=== PATIENT | male | born 1980 | race Caucasian/White ===

== ENCOUNTER → 2023-07-29 | Emergency (ER) | payer OTHER ==
[~2023-07-29] MED LIST: HYDROCODONE/APAP 7.5/325 MG TAB ONE; IBUPROFEN 400 MG TAB ONE
--- NOTE | 2023-07-29 03:16 | ER ---
Nurse's Notes [facility] Name: Toni Castro Age: 42 yrs Sex: Male : 1980 Arrival Date: 07/29/2023 Time: 01:20 Bed 18 Private MD: Diagnosis: Contusion of hand-right;Contusion of right wrist Presentation: 07/29 01:21 Chief complaint: Patient states: "it was loud in the yard and i didn't hear them say ap3 that the door was closing and it closed on my hand. It was in there for a good minute and a half before they opened it back up". patient complains of pain to his right and that he states is currently a 10/10 on the pain scale. Coronavirus screen: At this time, the client does not indicate any symptoms associated with coronavirus-19. Ebola Screen: No symptoms or risks identified at this time. Initial Sepsis Screen: Does the patient meet any 2 criteria? No. Patient's initial sepsis screen is negative. Does the patient have a suspected source of infection? No. Patient's initial sepsis screen is negative. Risk Assessment: Do you want to hurt yourself or someone else? Patient reports no desire to harm self or others. Onset of symptoms was July 28, 2023 at 20:00. 01:21 Method Of Arrival: Law Enforcement: [place] [employer] ap3 01:21 Acuity: RONALD 4 ap3 Triage Assessment: 01:25 General: Appears in no apparent distress. Behavior is calm, cooperative, appropriate ap3 for age. Pain: Complains of pain in right hand Pain currently is 10 out of 10 on a pain scale. Pain began suddenly. Neuro: Level of Consciousness is awake, alert, obeys commands, Oriented to person, place, time, situation, Appropriate for age. Cardiovascular: Patient's skin is warm and dry. Respiratory: Airway is patent Respiratory effort is even, unlabored, Respiratory pattern is regular, symmetrical. Derm: Wound noted right hand. Musculoskeletal: Swelling present in right hand. Historical: - Allergies: 01:24 No Known Allergies; ap3 - Home Meds: 01:24 None [Active]; ap3 - PMHx: 01:24 Hypertensive disorder; ap3 - Immunization history:: Client reports receiving the 2nd dose of the Covid vaccine, Flu vaccine is up to date. - Social history:: Smoking status: Patient denies any tobacco usage or history of. Screenin:26 [facility] ED Fall Risk Assessment (Adult) History of falling in the last 3 months, ap3 including since admission No falls in past 3 months (0 pts). Abuse screen: Denies threats or abuse. Nutritional screening: No deficits noted. Tuberculosis screening: No symptoms or risk factors identified. Assessment: 01:21 General: Appears comfortable, Behavior is calm, cooperative. Pain: Complains of pain in ha1 dorsal aspect of proximal phalanx of right thumb and dorsal aspect of right wrist Pain currently is 10 out of 10 on a pain scale. Quality of pain is described as throbbing. Neuro: Level of Consciousness is awake, alert, obeys commands, Oriented to person, place, time, situation. Cardiovascular: Capillary refill < 3 seconds Patient's skin is warm and dry. Respiratory: Airway is patent Respiratory effort is even, unlabored, Respiratory pattern is regular, symmetrical. Derm: Skin is pink, warm \\T\\ dry. Musculoskeletal: Circulation, motion, and sensation intact. Range of motion: intact in all extremities, Swelling present in palmar aspect of right wrist Reports pain in palmar aspect of right wrist. 02:22 Reassessment: Patient and/or family updated on plan of care and expected duration. Pain ha1 level reassessed. Patient is alert, oriented x 3, equal unlabored respirations, skin warm/dry/pink. Vital Signs: 01:21 BP 159 / 107; Pulse 80; Resp 17; Temp 97.8; Pulse Ox 100% ; Weight 107.95 kg; Height 5 ap3 ft. 11 in. ; Pain 10/10; 01:58 BP 130 / 81; Pulse 78; Resp 17 S; Pulse Ox 100% on R/A; ha1 02:22 BP 126 / 72; Pulse 70; Resp 17 S; Pulse Ox 99% on R/A; ha1 01:21 Body Mass Index 33.19 (107.95 kg, 180.34 cm) ap3 01:21 Pain Scale: Adult ap3 ED Course: 01:21 Patient arrived in ED. ap3 01:21 Donnie Rodgers PA is PHCP. cp 01:21 Donnie Kline MD is Attending Physician. cp 01:24 Triage completed. ap3 01:27 Arm band placed on right wrist. ap3 01:27 Patient has correct armband on for positive identification. Bed in low position. Call ap3 light in reach. Security at bedside. Pulse ox on. NIBP on. 01:28 Tawana Ruiz, RN is Primary Nurse. ap3 01:52 XRAY Hand RIGHT 3 View In Process Unspecified. EDMS 01:52 XRAY Forearm RIGHT In Process Unspecified. EDMS 03:23 No provider procedures requiring assistance completed. Patient did not have IV access ha1 during this emergency room visit. 03:24 Provided Education on: medication administration . ha1 Administered Medications: 01:33 Drug: Ibuprofen PO 800 mg PO once Route: PO; ha1 01:59 Follow up: Response: No adverse reaction; Marked relief of symptoms; Pain is decreased ha1 01:33 Drug: Hydrocodone-Acetaminophen PO (7.5 mg-325 mg) 1 tabs PO once; RASS on ADMIN: ha1 Combtv4, Very Agttd3, Agttd2, Rstlss1, AlertClm0, Drwsy-1, Lt Sdtn-2, Mod Sdtn-3, Dp Sdtn-4, UnArsble-5 Route: PO; 02:00 Follow up: Response: No adverse reaction; Marked relief of symptoms; Pain is decreased; ha1 RASS: Alert and Calm (0) Medication: 03:24 VIS not applicable for this client. ha1 Outcome: 03:15 Discharge ordered by MD. cooney 03:23 Discharged to [place] officer ha1 03:23 Condition: stable 03:23 Discharge instructions given to patient, Instructed on discharge instructions, follow up and referral plans. medication usage, Demonstrated understanding of instructions, follow-up care, medications, Prescriptions given X 1, 03:25 Patient left the ED. ha1 Signatures: Dispatcher [employer] EDMS Donnie Rodgers PA PA cp Prokisch, Amanda, RN RN ap3 Paulette White RN RN ha1
--- NOTE | 2023-07-29 03:16 | EDPHYS ---
Physician Documentation [facility] Name: Toni Castro Age: 42 yrs Sex: Male : 1980 Arrival Date: 07/29/2023 Time: 01:20 Bed 18 Private MD: Donnie Fernandez HPI: 07/29 01:30 This 42 yrs old Male presents to ER via Law Enforcement with complaints of Hand Injury. cp 01:30 The patient or guardian reports a contusion. The complaints affect the right hand and cp right wrist. Context: The problem was sustained at a [facility], resulted from a crush injury, cell door. Onset: The symptoms/episode began/occurred yesterday. Associated signs and symptoms: The patient has no apparent associated signs or symptoms. Historical: - Allergies: 01:24 No Known Allergies; ap3 - Home Meds: :24 None [Active]; ap3 - PMHx: 01:24 Hypertensive disorder; ap3 - Immunization history:: Client reports receiving the 2nd dose of the Covid vaccine, Flu vaccine is up to date. - Social history:: Smoking status: Patient denies any tobacco usage or history of. ROS: 01:35 MS/extremity: Positive for pain, of the right hand and right wrist, crush injury, cp 01:35 Constitutional: Negative for fever, cp 01:35 Neck: Negative for pain with movement, pain at rest, stiffness, 01:35 Cardiovascular: Negative for chest pain, 01:35 Abdomen/GI: Negative for abdominal pain, 01:35 Back: Negative for pain at rest, pain with movement, 01:35 All other systems are negative, Exam: 01:40 Constitutional: The patient appears in no acute distress, alert, awake, well developed, cp well nourished, 01:40 Head/Face: Normocephalic, atraumatic. cp 01:40 Neck: ROM/movement: is normal, is supple, without pain, no range of motions limitations, 01:40 Chest/axilla: Inspection: normal, Palpation: is normal, no crepitus, no tenderness, 01:40 Cardiovascular: Rate: normal, Pulses: Pulses are 2+ in right radial artery. 01:40 Respiratory: the patient does not display signs of respiratory distress, Respirations: normal, no use of accessory muscles, no retractions, labored breathing, is not present, Breath sounds: are clear throughout, no decreased breath sounds, 01:40 Abdomen/GI: Inspection: abdomen appears normal, Palpation: abdomen is soft and non-tender, in all quadrants, 01:40 Back: pain, is absent, ROM is normal, 01:40 Musculoskeletal/extremity: Extremities: grossly normal except: noted in the dorsal side of right hand and dorsal aspect of right wrist: contusion, swelling, tenderness, There is no evidence of decreased ROM, deformity, ROM: full active range of motion, in the right wrist, the right hand Sensation intact. Vital Signs: 01:21 BP 159 / 107; Pulse 80; Resp 17; Temp 97.8; Pulse Ox 100% ; Weight 107.95 kg; Height 5 ap3 ft. 11 in. ; Pain 10/10; 01:58 BP 130 / 81; Pulse 78; Resp 17 S; Pulse Ox 100% on R/A; ha1 02:22 BP 126 / 72; Pulse 70; Resp 17 S; Pulse Ox 99% on R/A; ha1 01:21 Body Mass Index 33.19 (107.95 kg, 180.34 cm) ap3 01:21 Pain Scale: Adult ap3 MDM: 01:21 Patient medically screened. 02:00 Differential diagnosis: dislocation, open fracture, closed fracture, contusion. 03:15 Data reviewed: vital signs, nurses notes, radiologic studies, plain films. 03:15 I considered the following discharge prescriptions or medication management in the emergency department Medications were administered in the Emergency Department. See MAR. Independent interpretation of the following test(s) in the Emergency Department X-Ray: My interpretation is images of right hand negative for fracture and images of right forearm negative for fracture. Counseling: I had a detailed discussion with the patient and/or guardian regarding the historical points, exam findings, and any diagnostic results supporting the discharge/admit diagnosis, radiology results, to return to the emergency department if symptoms worsen or persist or if there are any questions or concerns that arise at home. Response to treatment: the patient's symptoms have markedly improved after treatment, and as a result, I will discharge patient. 07/29 01:23 Order name: XRAY Hand RIGHT 3 View 07/29 01:23 Order name: XRAY Forearm RIGHT 07/29 02:05 Order name: Tab Wrap; Complete Time: :21 cp 07/29 02:05 Order name: Ice pack; Complete Time: : cp Administered Medications: 01:33 Drug: Ibuprofen PO 800 mg PO once Route: PO; ha1 01:59 Follow up: Response: No adverse reaction; Marked relief of symptoms; Pain is decreased ha1 01:33 Drug: Hydrocodone-Acetaminophen PO (7.5 mg-325 mg) 1 tabs PO once; RASS on ADMIN: ha1 Combtv4, Very Agttd3, Agttd2, Rstlss1, AlertClm0, Drwsy-1, Lt Sdtn-2, Mod Sdtn-3, Dp Sdtn-4, UnArsble-5 Route: PO; 02:00 Follow up: Response: No adverse reaction; Marked relief of symptoms; Pain is decreased; ha1 RASS: Alert and Calm (0) Disposition Summary: 07/29/23 03:15 Discharge Ordered Notes: Location: Home cp Problem: new cp Symptoms: have improved cp Condition: Stable cp Diagnosis - Contusion of hand - right cp - Contusion of right wrist cp Followup: cp - With: Private Physician - When: 2 - 3 days - Reason: Recheck today's complaints Discharge Instructions: - Discharge Summary Sheet cp - Wrist Pain, Adult cp - Crush Injury of the Hand cp Forms: - Medication Reconciliation Form cp - Thank You Letter cp - Antibiotic Education cp - Prescription Opioid Use cp - Patient Portal Instructions cp - Leadership Thank You Letter cp Prescriptions: - Ibuprofen 800 mg Oral Tablet - take 1 tablet ORAL route every 8 hours As needed take with food; 30 tablet; cp Refills: 0, Product Selection Permitted Signatures: Dispatcher [employer] EDMS Donnie Rodgers PA PA cp Tawana Ruiz RN RN ap3 Paulette White RN RN ha1 Corrections: (The following items were deleted from the chart) 07/30 01:57 01:54 MS/extremity: Positive for pain, of the right hand and right wrist, crush injury, cp cp
[2023-07-29 03:38] VITALS: BP 126/72; TEMP 97.8; O2SAT 99
--- NOTE | 2023-07-29 13:34 | RAD REPORT ---
EXAM DESCRIPTION: XR Right Hand Complete, 3 or More Views CLINICAL HISTORY: The patient is 42 years old and is Male; PAIN TECHNIQUE: Frontal, lateral and oblique views of the right hand. COMPARISON: No relevant prior studies available. FINDINGS: BONES/JOINTS: Minimal degenerative change of the bones of the wrist is noted with sclero sis and irregularity of the scaphoid along with radiocarpal joint space narrowing and sclerosis. No acute fracture. No dislocation. SOFT TISSUES: Mild soft tissue swelling of the dorsum of the hand is noted. No radiopaque forei gn body. IMPRESSION: Mild soft tissue swelling of the dorsum of the hand is noted. No underlying acute bony abnormality. Electronically signed by: Lilian Hall MD 07/29/2023 02:48 AM MULTIPLE DRILL OPERATOR Due to temporary technical issues with the PACS/Fluency reporting system, reports are being signed by the in house radiologists without review as a courtesy to insure prompt reporting. The interpreting radiologist is fully responsible for the content of the report.
--- NOTE | 2023-07-29 13:44 | RAD REPORT ---
EXAM DESCRIPTION: XR Right Forearm, 2 Views CLINICAL HISTORY: The patient is 42 years old and is Male; PAIN TECHNIQUE: Frontal and lateral views of the right forearm. COMPARISON: No relevant prior studies available. FINDINGS: BONES/JOINTS: Degenerative change of the carpal bones is noted. No acute fracture. No dislocation. SOFT TISSUES: Minimal soft tissue swelling of the distal forearm is noted. IMPRESSION: Minimal soft tissue swelling of the distal forearm is noted. No underlying acute bony abnormality. Electronically signed by: Lilian Hall MD 07/29/2023 02:49 AM FACILITIES ASSISTANT Due to temporary technical issues with the PACS/Fluency reporting system, reports are being signed by the in house radiologists without review as a courtesy to insure prompt reporting. The interpreting radiologist is fully responsible for the content of the report.
== END ==
LOC: ER 01:20
DX: S60.221A Contusion of right hand, initial encounter (principal); S60.211A Contusion of right wrist, initial encounter